=== PATIENT | male | born 1975 | race Caucasian/White ===

== ENCOUNTER → 2021-02-22 08:20 | Outpatient (CLI) | payer OTHER, SELFPAY ==
--- NOTE | 2021-02-22 08:21 | MRI_ITS ---
STUDY: MRI LUMBAR SPINE WITHOUT CONTRAST REASON FOR EXAM: Male, 45 years old. pain TECHNIQUE: Standardized fat and water weighted pulse sequences were obtained in the sagittal and axial planes. COMPARISON: X-ray 07/05/2020 FINDINGS: T12-L1: Normal endplates. Normal disc height, hydration and morphology. Normal bilateral facet joints. Normal central canal and bilateral lateral recesses. Normal bilateral intervertebral neural foramina. Normal lumbar lordosis. There is no substantial scoliosis. Normal conus medullaris that terminates at the L2. L1-2: Mild bilobed disc protrusion produces mild spinal stenosis and mild left neural foraminal stenosis. L2-3: Normal endplates. Normal disc height, hydration and morphology. Normal bilateral facet joints. Normal central canal and bilateral lateral recesses. Normal bilateral intervertebral neural foramina. L3-4: Normal endplates. Normal disc height, hydration and morphology. Normal bilateral facet joints. Normal central canal and bilateral lateral recesses. Normal bilateral intervertebral neural foramina. L4-5: Normal endplates. Normal disc height, hydration and morphology. Normal bilateral facet joints. Normal central canal and bilateral lateral recesses. Normal bilateral intervertebral neural foramina. L5-S1: Loss of disc height with a mild broad disc protrusion produces mild spinal stenosis and mild bilateral neural foraminal stenosis. Normal visualized sacral ala. Normal visualized paraspinous soft tissue structures. MRI/Spine Lumbar (Routine) IMPRESSION: Multilevel degenerative changes, as described above. Electronically Signed: Shyam Henry MD at 14:27 EDT Tel , Service support ,
== END ==
PROVIDERS: PCP Family Medicine; Referring Provider Orthopaedic Surgery; Visit Provider Orthopaedic Surgery
DX: M51.27 Other intervertebral disc displacement, lumbosacral region (principal)
CPT/HCPCS: 72148

== ENCOUNTER 2021-02-25 05:33 | Inpatient (IN) | payer OTHER, SELFPAY ==
[2021-01-17 09:34] VITALS: BMI 27.1
--- NOTE | 2021-02-14 09:32 | EKG12_ITS ---
Test Reason : PRE OP Blood Pressure : / mmHG Vent. Rate : 058 BPM Atrial Rate : 058 BPM P-R Int : 112 ms QRS Dur : 090 ms QT Int : 382 ms P-R-T Axes : 009 048 028 degrees QTc Int : 374 ms Sinus bradycardia Otherwise normal ECG Confirmed by REJI LOCKETT, RIAZ ([id number]), continuity editor JANE GRANDA ([id number]) on 02/17/2021 9:37:58 AM Referred By: ROGELIO Confirmed By:RIAZ MENDOZA MD
[2021-02-14 10:33] LABS: Absolute Lymphocyte Count 2.23 X10^3/uL (0.83-4.51); Absolute Neutrophil Count 4.2 X10^3/uL (2.0-7.7); Basophil# 0.06 X10^3/uL; Basophil% 0.8 % (0-1); Eosinophil# 0.16 X10^3/uL; Eosinophils% 2.2 % (0-5); Hemoglobin 14.3 g/dL (13.0-16.5); Lymphocyte # 2.23 X10^3/ul (0.83-4.51); Lymphocyte % 31.2 % (19-41); Mean Corp Hgb Conc 31.8 g/dL (32-36); Mean Corpuscular Hgb 29.7 pg (27.0-32.0); Mean Corpuscular Volume 93.4 fL (80-94); Mean Platelet Vol. 11.3 fl (6.2-12.0); Monocyte# 0.45 X10^3/uL; Monocyte% 6.3 % (0-10); NRBC Flagged by Analyzer 0 % (0-5); Neutrophil # 4.23 X10^3/uL (2.7-7.7); Neutrophil % 59.2 % (47-70); Platelet Count 248 K/mm3 (150-450); RBC Distribution Width CV 12.6 % (11.6-14.6); RBC Distribution Width SD 43.6 fl (35.1-43.9); Red Blood Count 4.82 M/mm3 (4.6-6.2); White Blood Count 7.2 K/mm3 (4.4-11.0)
[2021-02-14 11:03] LABS: Anion Gap 2 (5-15); BUN 14 mg/dL (7-18); BUN/Creat Ratio 15.6 RATIO (10-20); Calcium,Total 9.1 mg/dL (8.5-10.1); Chloride 106 mmol/L (98-107); EST Glomerular Filtration Rate 96 mL/min (>60); Est Glom Filt Rate - Afr Amer 116 mL/min (>60); Glucose 88 mg/dL (74-106); Potassium 4.1 mmol/L (3.5-5.1); Sodium Level 139 mmol/L (136-145)
[2021-02-14 11:18] LABS: Magnesium 2.1 mg/dL (1.6-2.6)
[2021-02-14 11:39] LABS: HIV - WCH Non-Reactive (Nonreactive); Hepatitis B Surface Antibody Non-Reactive; Hepatitis C Antibody Non-Reactive (Nonreactive)
[2021-02-15 10:23] LABS: Hepatitis A AB, Total Negative (Negative)
--- NOTE | 2021-02-21 13:24 | PCM.HP.BLA ---
History and Physical Date of Admission: 02/25/21 [facility] [id number] [id number] OFFICE VISITDate of Service: 01/17/21 MR#:[id number]:[id number]: ZEYAD MONTEZ [facility] #:[id number]:1975 Provider:Dr. Que Pringle DOAge/Sex: 45/M Location:[place]:Signed Intake Vital Signs 01/17/21 09:34 BMI 27.1 Intake Visit Reasons: Lumbar spine Allergies No Known Allergies Allergy (Verified 01/17/21 09:37) Medications ascorbate calcium (vitamin C) 500 mg tablet 500 mg PO DAILY 07/05/20 [History Confirmed 01/17/21] cyclobenzaprine 10 mg tablet tab PO 07/05/20 [History Confirmed 01/17/21] multivitamin 1 tab PO DAILY 07/05/20 [History Confirmed 01/17/21] gabapentin 300 mg capsule 300 mg PO TID cap 01/17/21 [History Confirmed 01/17/21] PFSH Surgical History H/O hand surgery Family History Father Heart disease Grandfather Heart disease Lung cancer Mother Bladder cancer Arthritis Grandmother Diabetes Social History household members: spouse and children housing: house current occupational status: employed Tobacco: How many years used: 40 Smokeless tobacco user: chewing tobacco what type of physical activity do you participate in: none do you feel safe at home: Yes HPI Lumbar spine Details: Parts of this documentation were recorded by a scribe, this documentation accurately reflects the service provided and the decisions made by me, Dr. Que Pringle DO 01/17/21926. ZEYAD MONTEZ is a 45 year old M here today for f/u low back pain. Patient has numbness and tingling in bilateral legs as well as his sides. Patient states that his pain can be sharp, burning or dull depending on the day. He has this pain radiating down his legs as well into his groin. Pain management has been giving injections for the pain but these have worn off quickly. Had gone through PT in the past. Denies any history of spinal surgery. Zeyad returns in the company of his . I have not seen him since June and he has gotten significantly worse since then. He states that he now drags his left foot often and he trips because of weakness in the foot. His pain is worse than it ever was going down his leg and starting in the middle of his low back. He denies any bowel or bladder dysfunction per se. On examination he has very positive straight leg raising very positive tension signs on the left. He can only forward bend a few inches because of the severe pain that goes down his leg. He has marked weakness of the peroneals on the left as compared to the right. He did not have that last time I examined him 6 months ago. The weakness is profound. His left Achilles reflex is absent as expected his right 1 is 2+. He has no long tract signs. Clonus is absent Babinski's are downgoing. I went over his old MRI scan that was done last year. He has large herniation at L5-S1 to the left. With desiccation and degeneration of the L5-S1 disc. Because of his marked time interval change and a obvious deterioration of his condition neurologically I suspect that he has had more nucleus come out of the disc. We will order a new MRI scan of the lumbar spine. He undoubtedly will need surgical intervention in the form of a 360 degree fusion with left-sided laminectomy at L5-S1. I will see him as soon as the MRI scan is done. Coding Level of Care Code Off vis,est,level 3 Diagnoses Herniated nucleus pulposus, L5-S1, left M51.27 Time Spent (min) 35 Assessment and Plan Assessment and Plan (1) Herniated nucleus pulposus, L5-S1, left:
[2021-02-25] VITALS (11 sets, daily range): BP systolic 118–134; BP diastolic 73–88; PULSE 64–96; RESP 16–20; TEMP 35.6–37.2; O2SAT 98–100; BMI 27.3
[2021-02-25] MEDS: Acetaminophen 500 MG Tablet 1000 MG PO (06:18)
[2021-02-25 06:25] LABS: Bedside Glucose 124 mg/dL (70-110)
[2021-02-25] MEDS: Lactated Ringers 1,000 ML 100 ML IV ×4 (06:33→15:30)
[2021-02-25] MEDS: Cefazolin 2 GM in 0.9% Normal Saline 100 ML IV (07:48)
[2021-02-25] MEDS: THROMBIN (RECOMBINANT) 20,000 UNIT VIAL 20000 UNIT TOPICAL (08:44)
[2021-02-25] MEDS: Heparin 10,000 UNITS/10 ML Vial 10000 UNITS (08:44)
--- NOTE | 2021-02-25 09:15 | RAD_ITS ---
STUDY: X-RAY - LUMBAR SPINE REASON FOR EXAM: Male, 45 years old. Intraoperative image during spine fusion TECHNIQUE: A single lateral view(s) of the lumbar spine were obtained. COMPARISON: Lumbar spine images dated 07/05/2020. FINDINGS: A single lateral image shows a needle at the L5-S1 interspace with multiple surgical skin. RAD/Spine 1 View Any Level IMPRESSION: Intraoperative digital documentation image. Electronically Signed: Mirza Scherer MD at 9:53 EDT , Service support ,
--- NOTE | 2021-02-25 10:15 | RAD_ITS ---
STUDY: X-RAY - LUMBAR SPINE REASON FOR EXAM: Male, 45 years old. 360 FUSION L5-S1, LAMINECTOMY LEFT TECHNIQUE: 1 view(s) of the lumbar spine were obtained. COMPARISON: 02/25/2021 at 0901 FINDINGS: A single lateral view of the lumbar spine demonstrates patient is status post discectomy, interbody fusion, and anterior fixation at L5/S1.. RAD/Spine 1 View Any Level IMPRESSION: Status post discectomy, interbody fusion, and anterior fixation at L5/S1. Electronically Signed: Shyam Henry MD at 16:51 EDT Tel , Service support ,
--- NOTE | 2021-02-25 10:26 | RAD_ITS ---
STUDY: X-RAY - LUMBAR SPINE REASON FOR EXAM: Male, 45 years old. 360 FUSION L5-S1, LAMINECTOMY LEFT TECHNIQUE: 1 view(s) of the lumbar spine were obtained. COMPARISON: None FINDINGS: A single lateral view of the lumbar spine obtained operative versus patient be status post discectomy and interbody fusion and anterior fixation at L5/S1.. RAD/Spine 1 View Any Level IMPRESSION: Status post fusion and fixation at L5/S1. Electronically Signed: Shyam Henry MD at 16:31 EDT Tel , Service support ,
--- NOTE | 2021-02-25 10:28 | PCM.OP.BLANK ---
Problems Associated Problem List Diagnoses (1) Herniated nucleus pulposus, L5-S1, left: Operative Report Date of Procedure: 02/25/21 Surgeon: Dr. Pringle co-surgeon: Dr. Davie Del Cid Diagnosis: Herniated disc with cauda equina syndrome Postop diagnosis same Procedure: Anterior lumbar interbody fusion L5-S1 with cage placement, bone marrow aspirate, and plate with 2 screws in L5 and 2 into S1. EBL: 50 cc Complication: None Operation: Patient brought to the operating room. Underwent general anesthesia. Given all the appropriate monitoring lines. Appropriate a We incised the fascia and divided this medially just to thentibiotics were given. Prepped and draped in a sterile fashion. We did a left lower quadrant incision and dissected do midline and then laterally past the rectus into the obliques.wn onto the anterior fascia. We then freed up the inferior superior long the fascia. We then got into the retroperitoneal space along the iliopsoas and visualization of the vessels. Omni retractor was placed. Then using blunt dissection we dissected onto the L5-S1 disc space. He had a very large middle sacral vein that was divided between ties and clips. Middle sacral vessel was also divided between clips. Several smaller venous branches also divided between clips. We then placed the needle and confirmed with x-ray in the L5-S1 disc space. Patient then underwent a discectomy. Trials were placed this is dilated up. Prior to this bone marrow aspirate from the left iliac crest. Once the space was freed and used a 14 small trial. Then also used the broach in this as well with a 14 mm. We then freed up the anterior and inferior for the plate. Then put in a 14 mm small cage with using the bone marrow aspirate. This was in good position. Plate was placed with 2 screws into L5 being 30 mm and 2 into S1 at 25 mm. Completion x-ray showed good position of this. We put a film over the plate and released the vessels with good hemostasis. We then closed the fascia with running strata fix. Then closed above this in layers with 203 0 Vicryl, and 4-0 Monocryl with Dermabond for the skin. I was present during the entire component of this. Patient will get flipped and the posterior all be done separately.
--- NOTE | 2021-02-25 10:42 | PCM.OPRPT ---
Report of Operation Date of Procedure: 02/25/21 Description of Surgical Findings:: Preoperative diagnosis: Herniated disc L5-S1 with degenerative disc disease L5-S1 intractable low back pain Postoperative diagnosis: Same Procedure: #1 anterior lumbar interbody fusion L5-S1 CPT code 28324 #2 application of spinal plate L5-S1 CPT code 47445/59 #3 insertion of titanium cage L5-S1 CPT code 64706 #4 BMA from left anterior iliac crest Cosurgeons: Dr. Pringle and Dr. Del Cid assistant controller: Veda MORGAN Anesthesia: General endotracheal anesthesia administered by [facility] Estimated blood loss: Less than 100 cc Drains: None Complications: None Procedure: Patient was taken to the OR where he was placed under general endotracheal anesthesia. A Pulido catheter was inserted. Neuro monitoring placed their leads on the patient. This was with the patient in the supine position on the operating table. The abdomen was then prepped and draped in standard fashion. The surgical approach is then described in Dr. Del Cid's operative summary. Once the L5-S1 disc was exposed an intraoperative x-ray was taken with a needle in place to confirm that we were indeed at L5-S1 which we were. Then remove the anterior annulus with a 10 blade and then pituitary rongeurs. I then removed the nucleus from then the disc space with pituitary rongeurs as far back as I could. Note that he had a decreased disc base because of the degeneration. I used ring curettes and to remove the cartilage off the top of the S1 endplate and the bottom of the L5 endplate. I then elevated the anterior longitudinal ligament off the spurring anteriorly at the bottom of L5 and the top of S1. Using double-action rongeurs I removed the anterior spurring at both levels. I then used a 6 mm stella bur to open the lateral space to make it flat for the cage. Also used it to give me more room posteriorly at the end of the disc space posteriorly. We then tried a large 10 mm 8 degree trial first however it was just a bit too big and we decided on the smaller 25 x 35 8 degree trial. We started with a 10 moved on up to 12 and finally ended up using a 14 mm trial. This fit quite well. Using the broach we were able to broach the space repeatedly until we had good bleeding endplate on both sides. We then took our a 14 mm 8 degree 25 x 35 cage and I filled the 2 spaces with spongy demineralized bone matrix. We obtained the BMA from the left iliac crest through a Jamshidi needle. This was then handed off to the electrical technician instructor who spun down and the stem cells from the rest of the cells. She concentrated them 8-10 times and gave them back to us. I then soaked the [place] demineralized bone matrix in the cage in the patient's own stem cells. I then tamped it into place and countersunk it a couple of millimeters. We then used a 27 mm L5-S1 plate once it was centered the first of 4 holes were used with an awl note that Dr. Del Cid was instrumental throughout the surgery help me with the all the insertion of the screws and the locking mechanisms etc. Once the [address] 2 into L5 and 2 into S1 he activated the locking mechanisms. Then place an amnionic graft directly over the plate particularly cheated a little bit to the left side where the iliac vessel went over the plate. This will prevent adhesions to the plate in the future. This was seen on the lateral projection with an x-ray was found to be very satisfactory. We had good position of the plate the screws and the cage. Note that the cage and the plate are not integral to each other. Hence modifier #59. The closure was then described in Dr. Del Cid's operative summary. This is the end of operative summary on Zeyad Carrillo. This is Dr. Pringle dictating.
--- NOTE | 2021-02-25 11:58 | RAD_ITS ---
STUDY: X-RAY - LUMBAR SPINE REASON FOR EXAM: Male, 45 years old. 360 FUSION L5-S1, LAMINECTOMY TECHNIQUE: 1 view(s) of the lumbar spine were obtained. COMPARISON: 02/25/2021 at 1139 FINDINGS: A single lateral view of the lumbar spine demonstrates patient is status post recent discectomy, interbody fusion, and anterior and posterior fixation at L5/S1 with skin jason and subcutaneous emphysema.. RAD/Spine 1 View Any Level IMPRESSION: Status post recent discectomy, interbody fusion, anterior and posterior fixation at L5/S1. Electronically Signed: Shyam Henry MD at 17:06 EDT Tel , Service support ,
--- NOTE | 2021-02-25 13:30 | OP.PCM_ITS ---
Report of Operation Date of Procedure: 02/25/21 Description of Surgical Findings:: Preoperative diagnosis: Herniated disc L5-S1 with severe degeneration intractable low back pain L5-S1 Postoperative diagnosis: The same Procedure: #1 posterior fusion L5-S1 CPT code 54086 #2 laminectomy L5-S1 left CPT code 81501 #3 internal fixation L5-S1 CPT code 03192 Surgeon: Dr. Pringle social science research assistant: Veda MORGAN Anesthesia: General endotracheal anesthesia administered by [facility] Estimated blood loss: 100 cc for both the front surgery and the back surgery Drains: Medium Hemovac Complications: None Procedure: Once the anterior procedure was completely done and the abdomen closed the patient was then placed in prone position on the Andrew frame. After appropriate positioning with care to protect bony prominences, the ulnar nerves of both elbows, the brachial plexus, the genitalia, the cervical spine and facial features the back was prepped and draped in standard fashion. I made a longitudinal incision centered over L5-S1 subcutaneous tissues were incised the length of the skin incision with cautery. I then opened the lumbar fascia to the left of the spinous processes and elevated the paravertebral muscles off the lamina 5 and the lamina of S1 on the left. An intraoperative x-ray was taken with a marker in place to assure that we were indeed at the proper level which we were. This was marked I then put a Charmaine retractor in place to the left give me good access to the lamina of L5. I then thinned down the lamina with double-action rongeurs. I then elevated the ligamentum flavum off the underside of the lamina of L5 and performed a laminotomy with Kerrison rongeurs. I then split the ligamentum flavum near its midline by putting a hockey-stick underneath it and cutting on top of it I then used curettes to release it off of the top of S1. I then removed the ligamentum flavum with 45 degree Kerrison rongeurs and went out all the way lateral to remove all of it into the lateral recess. Noted with opening the lateral part that the disc though bulging just a little since most of it was taken out through ligamentotaxis from the front there was no need to actually cut into the disc. Thus it was left alone. Opening the lateral recess completely decompressed the left S1 nerve root. We checked the foramen both anterior to the S1 nerve root and posterior to the S1 nerve root and there was simply no pressure on the nerve root anywhere. We then prepared for the fusion we then opened the right side and elevated paravertebral muscles off the lamina of L5 and the lamina of S1. Double-action rongeurs were used to remove the interspinous ligament between L5 and S1. A bone spacer was then put in place for both stability and to promote the fusion noted before this we put strips of DBM soaked in patient's own stem cells on both sides. The kidney graft was then put over this. We then applied the internal fixation device to provide posterior stability. Once in place the locking mechanisms were activated which gives a good construct. We then were able to observe this on x-ray was found to be quite satisfactory. A medium Hemovac drain was inserted. The lumbar fascia was then reapproximated using [id number] suture with #1 Vicryl followed by closure of the subcutaneous tissues with both 0 Vicryl and 2-0 Vicryl in layers. The skin was then approximated using skin c lips. This is operative summary on Zeyad Carrillo. This is Dr. Pringle dictating.
[2021-02-25] MEDS: Cefazolin 1 GM/50 ML BAG IV ×2 (17:00→23:21)
[2021-02-25] MEDS: Gabapentin 300 MG Capsule PO ×2 (17:00→22:36)
[2021-02-25] MEDS: Morphine 4 MG/ML Syringe IV ×2 (17:00→20:45)
--- NOTE | 2021-02-25 17:23 | PCS.PANDOC ---
PANDEMIC DOCUMENTATION INITIATED: Date: 02/03/2021 Time: 190
[2021-02-25] MEDS: oxyCODONE 5 MG Tablet PO (18:59)
[2021-02-25] MEDS: Ondansetron 4 MG/2 ML Vial IV (18:59)
[2021-02-25] MEDS: 0.9% Saline Lock 10 ML Syringe IV (19:00)
[2021-02-25] MEDS: Famotidine 20 MG Tablet PO (22:36)
[2021-02-25] MEDS: Senna/Docusate Sodium 1 Tablet 2 TABLET PO (22:36)
[2021-02-26] VITALS (11 sets, daily range): BP systolic 111–138; BP diastolic 65–83; PULSE 91–123; RESP 16–28; TEMP 36.6–38.8; O2SAT 94–100
--- NOTE | 2021-02-26 | DISC_PTH ---
PATIENT: CHRISTIANA MONTEZ LOC: MS3 U#:[id number] AGE/SX: 45/M ROOM: [facility] RE02/25/[address]: Dr. Que Pringle DO : 1975 BED: 1 DIS: 02/28/2021 SPEC #: [id number] RECD: 02/26/21 09:38 STATUS: EDWARD REQ #: [id number] BRENDA: 02/26/21 00:[address]: Que Pringle DEPT: SURGICAL PATHOLOGY RECD BY: Gavin Ramirez ENTERED: 02/26/21 09:39 SP TYPE: DISC OTHR DR: Dr. Elmo Trimble MD Tissues: Intervertebral disc, NOS Procedures: Surgery Specimen Level III HEADER OPERATION: ERAS, 360 lumbar Fusion L5-S1, laminectomy PRE-OP DIAGNOSIS: Herniated nucleus pulposus, L5-S1, left TISSUE SUBMITTED: L5-S1 Disc MICROSCOPIC DIAGNOSIS Intervertebral disc, L5-S1, discectomy: Degenerative change. AM:am 02/27/21 MICROSCOPIC DESCRIPTION Slides are reviewed. GROSS DESCRIPTION Received is one container labeled with the patient name and designated L5-S1 Disc. The specimen consists of multiple irregular fragments of light garcia firm soft tissue that in aggregate measure 6 x 5 x 2cm. Tailing Hand portions are submitted in one cassette. / AM:am 02/26/21 TC:5 CPT: 65142
[2021-02-26] MEDS: oxyCODONE 5 MG Tablet PO ×3 (00:35→13:38)
[2021-02-26] MEDS: Lactated Ringers 1,000 ML 100 ML IV ×4 (00:37→21:30)
[2021-02-26] MEDS: 0.9% Saline Lock 10 ML Syringe IV ×3 (05:36→11:07)
[2021-02-26] MEDS: Gabapentin 300 MG Capsule PO ×3 (05:36→21:30)
[2021-02-26] MEDS: Senna/Docusate Sodium 1 Tablet 2 TABLET PO ×2 (07:31→21:30)
[2021-02-26] MEDS: Famotidine 20 MG Tablet PO ×2 (07:31→21:30)
[2021-02-26] MEDS: Ondansetron 4 MG/2 ML Vial IV (07:32)
--- NOTE | 2021-02-26 11:00 | CASEMGMT ---
RN CM Face to Face with patient for initial transition planning/care coordination assessment. RN CM introduced self and role at [facility]. Patient lying in bed, alert and oriented, at bedside. Patient willing to participate in assessment and is able to answer all questions appropriately. Care providers, pharmacy, and demographics verified. Patient wishes to discharge home, denies need for home health at this time. Patient states he has no further needs or concerns at this time. CM to follow for discharge planning needs that may arise. PCP: Atilio Specialists: [facility] spinal surgeon Preferred [facility]acy: [facility] Insurance: [employer] Prescription Benefit: yes Living Will/HPOA: none LNOK: Living Arrangements: patient lives with in a mobile home with 5 steps and railing to enter the home. Patient was independent at home prior to surgery. Transportation: self/ DME/HHC: Patient may have BSC, cane, and walker at home, to check. Will follow and assist if patient will need walker. Patient denies previous HHC. Disposition Plan: Patient to discharge home with family support and follow-up plans in place. Rachell WHITEN, RN, CM
[2021-02-26] MEDS: Morphine 4 MG/ML Syringe IV ×2 (11:06→16:18)
--- NOTE | 2021-02-26 13:00 | PCM.PN.ORT ---
Objective Data Objective Data Vital Signs: Vital Signs Temp Pulse Resp BP Pulse Ox 97.9 F 105 H 16 118/73 100 02/26/21 07:28 02/26/21 07:28 02/26/21 07:28 02/26/21 07:28 02/26/21 07:28 Oxygen Flow Rate (L/min) 6 Oxygen Delivery Method Room Air Weight: 196 lb 6 oz Body Mass Index (BMI) 27.3 Intake & Output: Intake and Output for Last 24 Hours 02/24/21 02/25/21 02/26/21 23:59 23:59 23:59 Intake Total 4050.5 / 4050.5 948.34 / 948.34 Output Total 1170 / 1170 980 / 980 Balance 2880.5 / 2880.5 -31.66 / -31.66 Lab / Micro Data Result Diagrams: 02/14/21 09:50 02/14/21 09:50 Micro: Microbiology 02/21/21 08:35 Interface Orders SARS-CoV-2 Antigen (Rapid) - Final 02/14/21 09:50 Swab (Method) Nasal Screen MRSA/MSSA - Final Radiography Diagnostic Testing: Radiology Impression Spine X-Ray 02/25/21 10:15 IMPRESSION: Status post discectomy, interbody fusion, and anterior fixation at L5/S1. Electronically Signed: Shyam Henry MD at 16:51 EDT Tel , Service support , Spine X-Ray 02/25/21 10:26 IMPRESSION: Status post fusion and fixation at L5/S1. Electronically Signed: Shyam Henry MD at 16:31 EDT Tel , Service support , Spine X-Ray 02/25/21 11:58 IMPRESSION: Status post recent discectomy, interbody fusion, anterior and posterior fixation at L5/S1. Electronically Signed: Shyam Henry MD at 17:06 EDT Tel , Service support , Procedure Criteria Elective Risks - COVID COVID Risk Discussion: Postop day #1. Patient only complains that he is hungry. However we listen for bowel sounds and they are hypo at this time. Thus he cannot eat yet. We will keep him on clear liquids. His back pains not too bad has been up a couple of times already today. Neurocirculation is intact both lower extremities. Progress is satisfactory.
[2021-02-26] MEDS: diazePAM 5 MG Tablet PO (16:17)
--- NOTE | 2021-02-26 17:43 | PN_ITS ---
Documented by User: ANNY Murray 02/26/21 17:59 Progress Note Consulted by Dr. Pringle for new onset tachypnea, tachycardia, sudden onset fever. Patient underwent 360 lumbar fusion of the L5-S1 on 02/25/2021. Patient had been stable overnight but had sudden right hip and flank pain with concurrent fever 101.8, tachypnea 28, and tachycardia 123. Patient was given a dose of morphine 4 mg IV which had been effective in the past for pain control the patient states he feels like this dose has not been effective at all. Per Guera RICE, patient is not functioning properly which Dr. Gutierres is aware. Assessment & Plan Assessment/Plan (1) Fever: QUALIFIERS: Fever type: post-procedural Qualified Code(s): R50.82 - Postprocedural fever PLAN: 1. Sudden onset fever -Will obtain Covid PCR, chest x-ray, UA, blood cultures x2, urine culture -As patient has had no CBC or CMP completed since 02/14/2021 we will order CBC and CMP -Preop labs reviewed, no pertinent abnormal lab values noted -Tylenol 1000 mg p.o. every 8 hour as needed ordered for pain and fever 2. Sudden onset right hip and flank pain -Will obtain bilateral hip and pelvis x-ray along with lumbar spine x-ray -Dilaudid 0.5 mg x 1 ordered as morphine was completely on effective 3. 360 lumbar fusion -Will defer further surgical evaluation/intervention to Dr. Pringle -Dr. Gutierres updated by Marisa RICE of hospitalist plan of care and concerns regarding surgical drain in place. DVT prophylaxis-SCDs This patient was seen by ANNY Murray under the supervision of Dr. Rubina garay
[2021-02-26] MEDS: HYDROmorphone 0.5 MG/0.5 ML SYRINGE IV (17:59)
[2021-02-26] MEDS: 0.9% Normal Saline 1,000 ML 500 ML IV (18:04)
--- NOTE | 2021-02-26 18:16 | NURSING ---
pt unble to void prior to x-ray calling and emergently wanting pt in their unit for x-rays
--- NOTE | 2021-02-26 18:18 | RAD_ITS ---
STUDY: X-RAY CHEST REASON FOR EXAM: Male, 45 years old. Tachypnea TECHNIQUE: Portable, AP and lateral chest radiograph COMPARISON: None. FINDINGS: The lungs are clear and expanded. There is no demonstrated pleural abnormality. Normal size heart. Normal mediastinum and jordan. Normal visualized pulmonary arteries. Normal visualized aortic arch and descending thoracic aorta. There are diffuse degenerative changes of the visualized thoracic spine. Normal visualized ribs, clavicles, and shoulders. There is no demonstrated abnormality of the visualized soft tissue structures of the upper abdomen. RAD/Chest PA and Lateral IMPRESSION: No acute abnormal cardiopulmonary finding. Electronically Signed: Miguelito Valencia MD at 22:45 EDT Tel , Service support ,
--- NOTE | 2021-02-26 18:26 | RAD_ITS ---
STUDY: X-RAY - PELVIS AND BILATERAL HIPS REASON FOR EXAM: Male, 45 years old. Pain TECHNIQUE: AP view of the pelvis.? 2 views of the right hip, and 2 views of the left hip were obtained. COMPARISON: None. FINDINGS: There is a non-specific bowel gas pattern. Normal visualized soft tissue structures. Left pelvic phlebolith. Incidentally noted lower lumbar spine stabilization hardware. Normal bilateral iliac wings, sacroiliac joints and visualized sacrum. Normal bilateral superior and inferior pubic rami. Normal pubic symphysis. Normal bilateral ischial tuberosities. Normal visualized right femoral head. Normal right acetabulum. Normal right hip joint. Normal visualized left femoral head. Normal left acetabulum. Normal left hip joint. RAD/Hips B/L min 2 views w/ Pelvis IMPRESSION: Normal x-ray examination of the pelvis and bilateral hips. Electronically Signed: Miguelito Valencia MD at 4:34 EDT Tel , Service support ,
--- NOTE | 2021-02-26 18:27 | RAD_ITS ---
STUDY: X-RAY - LUMBAR SPINE REASON FOR EXAM: Male, 45 years old. Pain TECHNIQUE: AP and lateral radiographic view(s) of the lumbar spine were obtained. COMPARISON: 03/07/2021 FINDINGS: L4 right posterior element prosthetic device is new compared to 02/25/2021. L5-S1 anterior and posterior instrumented fusion redemonstrated. Normal lumbar lordosis. There is no substantial scoliosis. There is a normal alignment of the vertebrae. There is multilevel endplate spondylosis of the lumbar vertebrae. There is multi-level degenerative disc disease with multi-level disc space narrowing. There is no demonstrated fracture. There is no demonstrated spondylolysis of the pars interarticulares. The soft tissue structures are unremarkable. RAD/Lumbar Spine 2 or 3 Views IMPRESSION: There is a new prosthetic device about the L4 right posterior elements. Electronically Signed: Miguelito Valencia MD at 22:51 EDT Tel , Service support ,
[2021-02-26] MEDS: Acetaminophen 325 MG Tablet 650 MG PO (19:21)
[2021-02-26 19:45] LABS: Bacteria 0 SEEN /hpf (None Seen); Mucous, Urine 0 SEEN /hpf (<or=2+); Squamous Epithelial Cells - UA 0 SEEN /hpf (0-5)
[2021-02-26 19:58] LABS: Absolute Lymphocyte Count 1.61 X10^3/uL (0.83-4.51); Absolute Neutrophil Count 11.9 X10^3/uL (2.0-7.7); Basophil# 0.03 X10^3/uL; Basophil% 0.2 % (0-1); Hematocrit 40.3 % (40-54); Lymphocyte # 1.61 X10^3/ul (0.83-4.51); Lymphocyte % 10.7 % (19-41); Mean Corp Hgb Conc 32.3 g/dL (32-36); Mean Corpuscular Hgb 30.2 pg (27.0-32.0); Mean Corpuscular Volume 93.5 fL (80-94); Mean Platelet Vol. 11.3 fl (6.2-12.0); Monocyte# 1.36 X10^3/uL; Monocyte% 9.1 % (0-10); NRBC Flagged by Analyzer 0 % (0-5); Neutrophil # 11.94 X10^3/uL (2.7-7.7); Neutrophil % 79.7 % (47-70); Platelet Count 258 K/mm3 (150-450); RBC Distribution Width CV 13.2 % (11.6-14.6); RBC Distribution Width SD 45.1 fl (35.1-43.9); Red Blood Count 4.31 M/mm3 (4.6-6.2)
[2021-02-26 20:00] LABS: Color, Urine Straw (Yellow); Glucose, Dipstick Normal (Normal); Ketone-Dipstick Negative (Negative); Leukocyte Esterase-Dipstick 25 /ul (Negative); Nitrite-Dipstick Negative (Negative); Occult Blood-Urine 250 /ul (Negative); Protein-Dipstick Negative (Negative); Urine Bilirubin Dipstick Negative (Negative); Urine Clarity Clear (Clear); Urine Urobilinogen Normal (Normal)
[2021-02-26 20:10] LABS: ALB/GLOB Ratio 1.1 RATIO (0.9-2.4); AST(SGOT) 18 U/L (15-37); Alanine Aminotransfer ALT/SGPT 40 U/L (16-61); Albumin, Serum 3.3 g/dL (3.2-5.0); Alkaline Phosphatase 87 U/L (45-117); Anion Gap 3 (5-15); BUN 13 mg/dL (7-18); BUN/Creat Ratio 13.9 RATIO (10-20); Calcium,Total 8.7 mg/dL (8.5-10.1); Chloride 107 mmol/L (98-107); Creatinine, Serum 0.94 mg/dL (0.70-1.30); EST Glomerular Filtration Rate 92 mL/min (>60); Est Glom Filt Rate - Afr Amer 111 mL/min (>60); Estimated Creatinine Clearance 103.47 ml/min; Globulin 3.1 g/dL (2.2-4.2); Glucose 111 mg/dL (74-106); Potassium 3.7 mmol/L (3.5-5.1); Protein, Total 6.4 g/dL (6.4-8.2); Sodium Level 140 mmol/L (136-145)
[2021-02-26 20:20] LABS: Red Blood Cells-Urine 5-10 SEEN /hpf (0-5); White Blood Cells 0-5 SEEN /hpf (0-5)
[2021-02-26 21:04] LABS: Probe Check PASS; Specimen Processing Control PASS
[2021-02-27] VITALS (8 sets, daily range): BP systolic 117–131; BP diastolic 77–89; PULSE 87–115; RESP 18; TEMP 36.7–37.4; O2SAT 95–99
[2021-02-27] MEDS: oxyCODONE 5 MG Tablet 10 MG PO ×5 (02:15→20:08)
[2021-02-27 05:56] LABS: Absolute Lymphocyte Count 1.33 X10^3/uL (0.83-4.51); Absolute Neutrophil Count 10.2 X10^3/uL (2.0-7.7); Basophil# 0.03 X10^3/uL; Basophil% 0.2 % (0-1); Hematocrit 39.7 % (40-54); Hemoglobin 12.6 g/dL (13.0-16.5); Lymphocyte # 1.33 X10^3/ul (0.83-4.51); Lymphocyte % 10.2 % (19-41); Mean Corp Hgb Conc 31.7 g/dL (32-36); Mean Corpuscular Hgb 29.9 pg (27.0-32.0); Mean Corpuscular Volume 94.3 fL (80-94); Mean Platelet Vol. 10.8 fl (6.2-12.0); Monocyte# 1.46 X10^3/uL; Monocyte% 11.2 % (0-10); NRBC Flagged by Analyzer 0 % (0-5); Neutrophil % 77.9 % (47-70); Platelet Count 219 K/mm3 (150-450); RBC Distribution Width CV 13.2 % (11.6-14.6); RBC Distribution Width SD 45.8 fl (35.1-43.9); Red Blood Count 4.21 M/mm3 (4.6-6.2); White Blood Count 13.1 K/mm3 (4.4-11.0)
[2021-02-27] MEDS: Lactated Ringers 1,000 ML 100 ML IV (06:18)
[2021-02-27] MEDS: Gabapentin 300 MG Capsule PO ×3 (06:18→21:21)
[2021-02-27 06:25] LABS: ALB/GLOB Ratio 0.8 RATIO (0.9-2.4); AST(SGOT) 19 U/L (15-37); Alanine Aminotransfer ALT/SGPT 37 U/L (16-61); Albumin, Serum 2.8 g/dL (3.2-5.0); Alkaline Phosphatase 86 U/L (45-117); Anion Gap 5 (5-15); BUN 10 mg/dL (7-18); BUN/Creat Ratio 13.4 RATIO (10-20); Calcium,Total 8.4 mg/dL (8.5-10.1); Chloride 106 mmol/L (98-107); Creatinine, Serum 0.75 mg/dL (0.70-1.30); EST Glomerular Filtration Rate 119 mL/min (>60); Est Glom Filt Rate - Afr Amer 144 mL/min (>60); Estimated Creatinine Clearance 129.68 ml/min; Globulin 3.3 g/dL (2.2-4.2); Glucose 110 mg/dL (74-106); Potassium 3.8 mmol/L (3.5-5.1); Protein, Total 6.1 g/dL (6.4-8.2); Sodium Level 139 mmol/L (136-145)
--- NOTE | 2021-02-27 07:55 | PCM.RX.CS ---
Consult Pharmacy has been consulted to manage selected antiobiotic: Vancomycin Type of Consult: New start Suspected Infection: Other - SUDDEN ONSET FEVERS AND HIP PAIN Labs: Sodium 139 mmol/L (136-145) 02/27/21 05:42 Potassium 3.8 mmol/L (3.5-5.1) 02/27/21 05:42 Chloride 106 mmol/L (98-107) 02/27/21 05:42 Carbon Dioxide 28.0 mmol/L (21.0-32.0) 02/27/21 05:42 Anion Gap 5 (5-15) 02/27/21 05:42 BUN 10 mg/dL (7-18) 02/27/21 05:42 Creatinine 0.75 mg/dL (0.70-1.30) 02/27/21 05:42 Est GFR (MDRD) Af Amer 144 mL/min (>60) 02/27/21 05:42 Est GFR (MDRD) Non-Af 119 mL/min (>60) 02/27/21 05:42 BUN/Creatinine Ratio 13.4 RATIO (10-20) 02/27/21 05:42 Glucose 110 mg/dL (74-106) H 02/27/21 05:42 Microbiology: Microbiology 02/21/21 08:35 Interface Orders SARS-CoV-2 Antigen (Rapid) - Final 02/14/21 09:50 Swab (Method) Nasal Screen MRSA/MSSA - Final Weight used for dosin.07 kg Estimated Creatinine Clearance: 120 ML/MIN Goal Trough: 15-20 mcg/mL Pharmacy Plan for Drug Dosing: NEW START IV VANCOMYCIN Consulting Physician: ZANDRA Indication: SUDDEN ONSET FEVERS AND HIP PAIN Goal Trough: 15-20 SrCr: 0.75 CrCl: > 120 ML/MIN Comments: INITIAL DOSE (15 MG/KG) 1250MG X1 Vancomcyin Dose: 1000MG Q8H TO START AT 1600 02/27/21 Pending Level: 0700 02/28/21 Pharmacy Service will continue to monitor and adjust dosing as required. Labs to be done on [date and time ordered]: 02/28/21 0700 VANCOMYCIN LEVEL
[2021-02-27] MEDS: diazePAM 5 MG Tablet PO ×3 (08:05→21:25)
[2021-02-27] MEDS: Famotidine 20 MG Tablet PO ×2 (09:28→21:21)
[2021-02-27] MEDS: Senna/Docusate Sodium 1 Tablet 2 TABLET PO ×2 (09:29→21:21)
--- NOTE | 2021-02-27 09:58 | PCM.CONS.GEN ---
Assessment & Plan Assessment/Plan (1) Fever: QUALIFIERS: Fever type: post-procedural Qualified Code(s): R50.82 - Postprocedural fever PLAN: Post op fever, leukocytosis, tachycardia - improved this AM, no further fever, wbc better. UA relatively normal. Bcx pending. Covid pcr neg, but is unvaccinated; reviewed risks and benefits, encouraged him to get vaccine. CXR clear. Incision doing well at this point. Ok to continue vanc/zosyn while cxs pending. Will follow, thank you, d/w nursing (2) Cauda equina syndrome with neurogenic bladder: HPI Consult Data Date of Consult: 02/27/21 HPI Narrative HPI Narrative: CHRISTIANA MONTEZ, is a 45 M who presented 02/25/21 for L5-S1 herniated disc requiring posterior fusion/laminectomy/internal fixation by Dr. Pringle. On 02/26, developed fever to 101.8. No other associated symptoms other than back pain. Pulido in place. CXR done, covid pcr neg. Started on vanc/zosyn, feeling ok this AM. Has not gotten covid vaccine. Spoke with nursing, no redness or drainage from lumbar incision. Full ROS performed and neg except as noted above. REPLACED BY [facility] Medical History Arthritis Back pain Chewing tobacco use History of pain when walking History of steroid therapy History of stress test Leg cramps Restless legs Wears glasses Home Medications ascorbate calcium (vitamin C) 500 mg tablet 500 mg PO DAILY 07/05/20 [History Last Taken Unknown] multivitamin 1 tab PO DAILY 07/05/20 [History Last Taken Unknown] gabapentin 300 mg capsule 300 mg PO TID cap 01/17/21 [History Last Taken 02/25/21] Allergy/AdvReac Type Severity Reaction Status Date / Time No Known Allergies Allergy Verified 02/14/21 08:05 Family History Father Heart disease Grandfather Heart disease Lung cancer Mother Bladder cancer Arthritis Grandmother Diabetes Surgical History H/O hand surgery Social History (Updated 02/14/21 @ 08:08 by Amanda Valencia) household members: spouse and children housing: house current occupational status: employed Smoking Status: Current some day smoker Tobacco: How many years used: 40 Smokeless tobacco user: chewing tobacco what type of physical activity do you participate in: none do you feel safe at home: Yes Physical Exam Const alert, oriented x3 and no apparent distress General Appearance: cooperative Exam Limitations: no limitations HEENT normocephalic and head/scalp atraumatic Eyes PERRL and EOMs intact bilaterally Neck supple and No nodes Resp normal air movement and clear to auscultation bilaterally Cardio regular rate and regular rhythm GI normal to inspection, nondistended, normoactive bowel sounds Extremity no clubbing, cyanosis or edema Skin no rashes or lesions noted Skin Narrative: No swelling or redness around lumbar incision Neuro CN's II-XII intact bilaterally Lab / Micro Data Result Diagrams: 02/27/21 05:42 02/27/21 05:42 Labs: Laboratory Results - last 24 hr 02/26/21 18:00: COVID-19 (JENNIFER) Negative 02/26/21 19:09: WBC 15.0 H, RBC 4.31 L, Hgb 13.0, Hct 40.3, MCV 93.5, MCH 30.2, MCHC 32.3, RDW Std Deviation 45.1 H, RDW Coeff of Kayla 13.2, Plt Count 258, MPV 11.3, Immature Gran % (Auto) 0.300, Neut % (Auto) 79.7 H, Lymph % (Auto) 10.7 L, [place] % (Auto) 9.1, Eos % (Auto) 0.0, Baso % (Auto) 0.2, Absolute Neuts (auto) 11.9 H, Absolute Lymphs (auto) 1.61, Nucleated RBC % 0 02/26/21 19:09: Sodium 140, Potassium 3.7, Chloride 107, Carbon Dioxide 30.0, Anion Gap 3 L, BUN 13, Creatinine 0.94, Estim Creat Clear Calc 103.47, Est GFR (MDRD) Af Amer 111, Est GFR (MDRD) Non-Af 92, BUN/Creatinine Ratio 13.9, Glucose 111 H, Calcium 8.7, Total Bilirubin 0.60, AST 18, ALT 40, Alkaline Phosphatase 87, Total Protein 6.4, Albumin 3.3, Globulin 3.1, Albumin/Globulin Ratio 1.1 02/26/21 19:30: Urine Color Straw, Urine Clarity Clear, Urine pH 7.0, Ur Specific [place] 1.010, Urine Protein Negative, Urine Glucose (UA) Normal, Urine Ketones Negative, Urine Occult Blood 250 H, Urine Nitrite Negative, Urine Bilirubin Negative, Urine Urobilinogen Normal, Ur Leukocyte Esterase 25 H, Urine RBC 5-10 SEEN, Urine WBC 0-5 SEEN, Ur Squamous Epith Cells 0 SEEN, Urine Bacteria 0 SEEN, Urine Mucus 0 SEEN 02/27/21 05:42: WBC 13.1 H, RBC 4.21 L, Hgb 12.6 L, Hct 39.7 L, MCV 94.3 H, MCH 29.9, MCHC 31.7 L, RDW Std Deviation 45.8 H, RDW Coeff of Kayla 13.2, Plt Count 219, MPV 10.8, Immature Gran % (Auto) 0.500, Neut % (Auto) 77.9 H, Lymph % (Auto) 10.2 L, [place] % (Auto) 11.2 H, Eos % (Auto) 0.0, Baso % (Auto) 0.2, Absolute Neuts (auto) 10.2 H, Absolute Lymphs (auto) 1.33, Nucleated RBC % 0 02/27/21 05:42: Sodium 139, Potassium 3.8, Chloride 106, Carbon Dioxide 28.0, Anion Gap 5, BUN 10, Creatinine 0.75, Estim Creat Clear Calc 129.68, Est GFR (MDRD) Af Amer 144, Est GFR (MDRD) Non-Af 119, BUN/Creatinine Ratio 13.4, Glucose 110 H, Calcium 8.4 L, Total Bilirubin 0.70, AST 19, ALT 37, Alkaline Phosphatase 86, Total Protein 6.1 L, Albumin 2.8 L, Globulin 3.3, Albumin/Globulin Ratio 0.8 L Radiology Impression Chest X-Ray 02/26/21 18:18 IMPRESSION: No acute abnormal cardiopulmonary finding. Electronically Signed: Miguelito Valencia MD at 22:45 EDT Tel , Service support , Hip/Pelvis X-Ray 02/26/21 18:26 IMPRESSION: Normal x-ray examination of the pelvis and bilateral hips. Electronically Signed: Miguelito Valencia MD at 4:34 EDT Tel , Service support , Lumbar Spine X-Ray 02/26/21 18:27 IMPRESSION: There is a new prosthetic device about the L4 right posterior elements. Electronically Signed: Miguelito Valencia MD at 22:51 EDT Tel , Service support ,
--- NOTE | 2021-02-27 14:22 | PCM.PN.ORT ---
Objective Data Objective Data Vital Signs: Vital Signs Temp Pulse Resp BP Pulse Ox 98.1 F 102 H 18 117/89 H 96 02/27/21 07:30 02/27/21 07:30 02/27/21 07:30 02/27/21 07:30 02/27/21 08:26 Oxygen Flow Rate (L/min) 6 Oxygen Delivery Method Room Air Weight: 196 lb 6 oz Body Mass Index (BMI) 27.3 Intake & Output: Intake and Output for Last 24 Hours 02/25/21 02/26/21 02/27/21 23:59 23:59 23:59 Intake Total 4050.5 / 4050.5 3644.34 / 3644.34 2054 / 2054 Output Total 1170 / 1170 3130 / 3130 3200 / 3200 Balance 2880.5 / 2880.5 514.34 / 514.34 -1145 / -1145 Lab / Micro Data Result Diagrams: 02/27/21 05:42 02/27/21 05:42 Labs: Laboratory Results - last 24 hr 02/26/21 18:00: COVID-19 (JENNIFER) Negative 02/26/21 19:09: WBC 15.0 H, RBC 4.31 L, Hgb 13.0, Hct 40.3, MCV 93.5, MCH 30.2, MCHC 32.3, RDW Std Deviation 45.1 H, RDW Coeff of Kayla 13.2, Plt Count 258, MPV 11.3, Immature Gran % (Auto) 0.300, Neut % (Auto) 79.7 H, Lymph % (Auto) 10.7 L, [place] % (Auto) 9.1, Eos % (Auto) 0.0, Baso % (Auto) 0.2, Absolute Neuts (auto) 11.9 H, Absolute Lymphs (auto) 1.61, Nucleated RBC % 0 02/26/21 19:09: Sodium 140, Potassium 3.7, Chloride 107, Carbon Dioxide 30.0, Anion Gap 3 L, BUN 13, Creatinine 0.94, Estim Creat Clear Calc 103.47, Est GFR (MDRD) Af Amer 111, Est GFR (MDRD) Non-Af 92, BUN/Creatinine Ratio 13.9, Glucose 111 H, Calcium 8.7, Total Bilirubin 0.60, AST 18, ALT 40, Alkaline Phosphatase 87, Total Protein 6.4, Albumin 3.3, Globulin 3.1, Albumin/Globulin Ratio 1.1 02/26/21 19:30: Urine Color Straw, Urine Clarity Clear, Urine pH 7.0, Ur Specific [place] 1.010, Urine Protein Negative, Urine Glucose (UA) Normal, Urine Ketones Negative, Urine Occult Blood 250 H, Urine Nitrite Negative, Urine Bilirubin Negative, Urine Urobilinogen Normal, Ur Leukocyte Esterase 25 H, Urine RBC 5-10 SEEN, Urine WBC 0-5 SEEN, Ur Squamous Epith Cells 0 SEEN, Urine Bacteria 0 SEEN, Urine Mucus 0 SEEN 02/27/21 05:42: WBC 13.1 H, RBC 4.21 L, Hgb 12.6 L, Hct 39.7 L, MCV 94.3 H, MCH 29.9, MCHC 31.7 L, RDW Std Deviation 45.8 H, RDW Coeff of Kayla 13.2, Plt Count 219, MPV 10.8, Immature Gran % (Auto) 0.500, Neut % (Auto) 77.9 H, Lymph % (Auto) 10.2 L, [place] % (Auto) 11.2 H, Eos % (Auto) 0.0, Baso % (Auto) 0.2, Absolute Neuts (auto) 10.2 H, Absolute Lymphs (auto) 1.33, Nucleated RBC % 0 02/27/21 05:42: Sodium 139, Potassium 3.8, Chloride 106, Carbon Dioxide 28.0, Anion Gap 5, BUN 10, Creatinine 0.75, Estim Creat Clear Calc 129.68, Est GFR (MDRD) Af Amer 144, Est GFR (MDRD) Non-Af 119, BUN/Creatinine Ratio 13.4, Glucose 110 H, Calcium 8.4 L, Total Bilirubin 0.70, AST 19, ALT 37, Alkaline Phosphatase 86, Total Protein 6.1 L, Albumin 2.8 L, Globulin 3.3, Albumin/Globulin Ratio 0.8 L Micro: Microbiology 02/21/21 08:35 Interface Orders SARS-CoV-2 Antigen (Rapid) - Final 02/14/21 09:50 Swab (Method) Nasal Screen MRSA/MSSA - Final Radiography Diagnostic Testing: Radiology Impression Chest X-Ray 02/26/21 18:18 IMPRESSION: No acute abnormal cardiopulmonary finding. Electronically Signed: Miguelito Valencia MD at 22:45 EDT Tel , Service support , Hip/Pelvis X-Ray 02/26/21 18:26 IMPRESSION: Normal x-ray examination of the pelvis and bilateral hips. Electronically Signed: Miguelito Valencia MD at 4:34 EDT Tel , Service support , Lumbar Spine X-Ray 02/26/21 18:27 IMPRESSION: There is a new prosthetic device about the L4 right posterior elements. Electronically Signed: Miguelito Valencia MD at 22:51 EDT Tel , Service support , Procedure Criteria Elective Risks - COVID COVID Risk Discussion: Postop day #2. Patient is seen on rounds. He has been walking and been seen in the hallway doing so. His abdomen is much softer today. He has fact flatulence now that I could actually hear. We will advance his diet to full liquids. I changed his dressing remove the drain. Vision is dry and healing well. Progress is satisfactory. Hopefully he will be able to go home tomorrow.
--- NOTE | 2021-02-27 14:25 | PN.HOSP_ITS ---
Subjective Subjective Hospitalist team was consulted for evaluation of fever and chills and infection after the procedure. Patient had L5-S1 herniated disc which required posterior fusion, laminectomy internal fixation by Dr. Pringle. Patient has Pulido catheter with history of neurogenic bladder and incomplete emptying and retention. Denies cough, sputum production, burning micturition. No abdominal pain. Complain of severe back pain after surgery and painful rotation. Objective Data Objective Data Vital Signs: Vital Signs Temp Pulse Resp BP Pulse Ox 98.1 F 102 H 18 117/89 H 96 02/27/21 07:30 02/27/21 07:30 02/27/21 07:30 02/27/21 07:30 02/27/21 08:26 Oxygen Flow Rate (L/min) 6 Oxygen Delivery Method Room Air Weight: 196 lb 6 oz Body Mass Index (BMI) 27.3 Intake & Output: Intake and Output for Last 24 Hours 02/25/21 02/26/21 02/27/21 23:59 23:59 23:59 Intake Total 4050.5 / 4050.5 3644.34 / 3644.34 2054 / 2054 Output Total 1170 / 1170 3130 / 3130 3200 / 3200 Balance 2880.5 / 2880.5 514.34 / 514.34 -1145 / -1145 Lab / Micro Data Result Diagrams: 02/27/21 05:42 02/27/21 05:42 Labs: Laboratory Results - last 24 hr 02/26/21 18:00: COVID-19 (JENNIFER) Negative 02/26/21 19:09: WBC 15.0 H, RBC 4.31 L, Hgb 13.0, Hct 40.3, MCV 93.5, MCH 30.2, MCHC 32.3, RDW Std Deviation 45.1 H, RDW Coeff of Kayla 13.2, Plt Count 258, MPV 11.3, Immature Gran % (Auto) 0.300, Neut % (Auto) 79.7 H, Lymph % (Auto) 10.7 L, [place] % (Auto) 9.1, Eos % (Auto) 0.0, Baso % (Auto) 0.2, Absolute Neuts (auto) 11.9 H, Absolute Lymphs (auto) 1.61, Nucleated RBC % 0 02/26/21 19:09: Sodium 140, Potassium 3.7, Chloride 107, Carbon Dioxide 30.0, Anion Gap 3 L, BUN 13, Creatinine 0.94, Estim Creat Clear Calc 103.47, Est GFR (MDRD) Af Amer 111, Est GFR (MDRD) Non-Af 92, BUN/Creatinine Ratio 13.9, Glucose 111 H, Calcium 8.7, Total Bilirubin 0.60, AST 18, ALT 40, Alkaline Phosphatase 87, Total Protein 6.4, Albumin 3.3, Globulin 3.1, Albumin/Globulin Ratio 1.1 02/26/21 19:30: Urine Color Straw, Urine Clarity Clear, Urine pH 7.0, Ur Specific [place] 1.010, Urine Protein Negative, Urine Glucose (UA) Normal, Urine Ketones Negative, Urine Occult Blood 250 H, Urine Nitrite Negative, Urine Bilirubin Negative, Urine Urobilinogen Normal, Ur Leukocyte Esterase 25 H, Urine RBC 5-10 SEEN, Urine WBC 0-5 SEEN, Ur Squamous Epith Cells 0 SEEN, Urine B acteria 0 SEEN, Urine Mucus 0 SEEN 02/27/21 05:42: WBC 13.1 H, RBC 4.21 L, Hgb 12.6 L, Hct 39.7 L, MCV 94.3 H, MCH 29.9, MCHC 31.7 L, RDW Std Deviation 45.8 H, RDW Coeff of Kayla 13.2, Plt Count 219, MPV 10.8, Immature Gran % (Auto) 0.500, Neut % (Auto) 77.9 H, Lymph % (Auto) 10.2 L, [place] % (Auto) 11.2 H, Eos % (Auto) 0.0, Baso % (Auto) 0.2, Absolute Neuts (auto) 10.2 H, Absolute Lymphs (auto) 1.33, Nucleated RBC % 0 02/27/21 05:42: Sodium 139, Potassium 3.8, Chloride 106, Carbon Dioxide 28.0, A nion Gap 5, BUN 10, Creatinine 0.75, Estim Creat Clear Calc 129.68, Est GFR (MDRD) Af Amer 144, Est GFR (MDRD) Non-Af 119, BUN/Creatinine Ratio 13.4, Glucose 110 H, Calcium 8.4 L, Total Bilirubin 0.70, AST 19, ALT 37, Alkaline Phosphatase 86, Total Protein 6.1 L, Albumin 2.8 L, Globulin 3.3, Albumin/Globulin Ratio 0.8 L Micro: Microbiology 02/21/21 08:35 Interface Orders SARS-CoV-2 Antigen (Rapid) - Final 02/14/21 09:50 Swab (Method) Nasal Screen MRSA/MSSA - Final Radiography Diagnostic Testing: Radiology Impression Chest X-Ray 02/26/21 18:18 IMPRESSION: No acute abnormal cardiopulmonary finding. Electronically Signed: Miguelito Valencia MD at 22:45 EDT Tel , Service support , Hip/Pelvis X-Ray 02/26/21 18:26 IMPRESSION: Normal x-ray examination of the pelvis and bilateral hips. Electronically Signed: Miguelito Valencia MD at 4:34 EDT Tel , Service support , Lumbar Spine X-Ray 02/26/21 18:27 IMPRESSION: There is a new prosthetic device about the L4 right posterior elements. Electronically Signed: Miguelito Valencia MD at 22:51 EDT Tel , Service support , Physical Exam Narrative General: Alert, Oriented x3, Cooperative in mild distress due to back pain HEENT: Atraumatic, PERRLA, EOMI, Normocephalic Oral: No Gingival or Mucosal Lesions/ Ulcerations Neck: Supple, No JVD, Negative Carotid Bruits Lungs: Air entry diminished in bilateral lung bases. No crepitation/rhonchi Cardiovascular: Regular rate, Regular Rhythm, Normal S1, Normal S2, No murmurs Abdomen: Bowel Sounds Present, Soft, Non Tender, Non-Distended : Pulido catheter. Clear urine. Neurogenic bladder. No renal angle or suprapubic tenderness. Extremities: No edema, Capillary Refill Less than 3 Seconds Skin: No rashes, No breakdown Musculoskeletal/spine: Unable to turn to side. Tenderness palpated. Could not inspect the back because of pain Neurological: Cranial nerves II-XII grossly intact, DTR 2+/4 and Symmetrical, Neuro grossly intact Psych/Mental Status: Flat affect. Assessment & Plan Assessment/Plan (1) Fever: QUALIFIERS: Fever type: post-procedural Qualified Code(s): R50.82 - Postprocedural fever (2) Cauda equina syndrome with neurogenic bladder: (3) Herniated nucleus pulposus, L5-S1, left: PLAN: 1. Fever after the back surgery, L5-S1 herniated disc with severe degeneration requiring posterior elements fusion, laminectomy and internal fixation on 02/25: Urine looks bland with WBC 0-5 cells LE 25 and nitrite negative. Chest x-ray clear. ID consult reviewed and agree with Brianne and Zane. Blood cultures are pending. Patient has back pain. Further orthospine Dr. Pringle evaluation needed. 2. Chronic back pain, lumbar radiculopathy with radiation to right hip: Patient had T-spine x-rays which shows postsurgical changes. Hip and pelvic x-ray reported normal. 3. VT prophylaxis: Bilateral SCDs. Patient has KEITH hose. Pharmacological prophylaxis as per discretion of Dr. Pringle. Clinical Impression(s) from Imaging Studies Spine X-Ray 02/25/21 09:15 IMPRESSION: Intraoperative digital documentation image. Electronically Signed: Mirza Scherer MD at 9:53 EDT , Service support , Spine X-Ray 02/25/21 10:15 IMPRESSION: Status post discectomy, interbody fusion, and anterior fixation at L5/S1. Electronically Signed: Shyam Henry MD at 16:51 EDT Tel , Service support , Spine X-Ray 02/25/21 10:26 IMPRESSION: Status post fusion and fixation at L5/S1. Electronically Signed: Shyam Henry MD at 16:31 EDT Tel , Service support , Spine X-Ray 02/25/21 11:58 IMPRESSION: Status post recent discectomy, interbody fusion, anterior and posterior fixation at L5/S1. Electronically Signed: Shyam Henry MD at 17:06 EDT Tel , Service support , Chest X-Ray 02/26/21 18:18 IMPRESSION: No acute abnormal cardiopulmonary finding. Hip/Pelvis X-Ray 02/26/21 18:26 IMPRESSION: Normal x-ray examination of the pelvis and bilateral hips. Electronically Signed: Miguelito Valencia MD at 4:34 EDT Tel , Service support , Lumbar Spine X-Ray 02/26/21 18:27
[2021-02-27] MEDS: HYDROmorphone 0.5 MG/0.5 ML SYRINGE IV (14:45)
[2021-02-27] MEDS: Vancomycin IV 1,000 MG/200 ML BAG 200 MG IV (16:41)
[2021-02-27] MEDS: Tamsulosin HCl 0.4 MG Capsule PO (17:09)
[2021-02-27] MEDS: Acetaminophen 325 MG Tablet 650 MG PO (21:25)
[2021-02-28] VITALS (7 sets, daily range): BP systolic 130–139; BP diastolic 68–90; PULSE 98–118; RESP 16–18; TEMP 36.8–37.1; O2SAT 93–100
[2021-02-28] MEDS: Vancomycin IV 1,000 MG/200 ML BAG 200 MG IV ×2 (00:11→08:09)
[2021-02-28] MEDS: Lactated Ringers 1,000 ML 100 ML IV (00:12)
[2021-02-28] MEDS: Gabapentin 300 MG Capsule PO ×2 (06:10→13:35)
[2021-02-28] MEDS: oxyCODONE 5 MG Tablet 10 MG PO ×2 (06:10→10:54)
[2021-02-28] MEDS: diazePAM 5 MG Tablet PO (08:10)
[2021-02-28] MEDS: Famotidine 20 MG Tablet PO (10:24)
[2021-02-28] MEDS: Senna/Docusate Sodium 1 Tablet 2 TABLET PO (10:25)
--- NOTE | 2021-02-28 12:36 | DCINST_ITS ---
Discharge Instructions Follow Up Care Test Results: Test results from this visit will be discussed in further detail at your follow-up appointment, if applicable. Discharge Plan Admission Admit Date/Time: 02/25/21 05:33 Primary Reason for Your Visit: surgery Attending Provider: Que Pringle Primary Care Provider: Elmo Trimble Consulting Providers: Sergio Sutton ; Rea Monson ; Sahara Boateng ; Marcie Mark [employer] ; Koby Vazquez NP ; Elizabeth Steiner ; Ori Domingo Discharge Orders/Prescriptions Prescriptions: No Action multivitamin Tablet 1 tab PO DAILY RF: 0 ascorbate calcium (vitamin C) 500 mg tablet 500 mg PO DAILY RF: 0 gabapentin 300 mg capsule 300 mg PO TID RF: 0 hydrocodone-acetaminophen 7.5-325 mg tablet 1 tab PO Q6H PRN (Reason: pain) 10 Days Qty: 40 RF: 0 Referrals / Follow Up: Elmo Trimble MD [Primary Care Provider] - Disposition Disposition (needs filled in before D/C Order can be placed): Home, Self Care
--- NOTE | 2021-02-28 12:38 | DS.PCM_ITS ---
Providers Date of Admission: 02/25/21 Primary Care Physician: Dr. Elmo Trimble MD Consultations 02/26/21 19:04 Consult: Hospitalist Routine Consulting Provider: [facility] Reason for Consult: fever post op EMERGENT Consult: Yes MD Notified: Yes Date Notified: 02/26/21 Time Notified: 17:45 Method of Notification: Text Method of Consult:: In-Person 02/27/21 07:34 Consult: Infectious Disease Routine Consulting Provider: Ori Domingo Reason for Consult: fever after lumbar spine surgery. H/o cauda equina, neurogenic bladder EMERGENT Consult: No MD Notified: Yes Date Notified: 02/27/21 Time Notified: 07:34 Method of Notification: Verbal Reason For Visit: 360 LUMBAR FUSION L5-S1, LT LAMINECTOMY Diagnosis Discharge Diagnosis (1) Fever: Status: Acute Code(s): R50.9 - Fever, unspecified Qualifiers: Fever type: post-procedural Qualified Code(s): R50.82 - Postprocedural fever (2) Cauda equina syndrome with neurogenic bladder: Status: Acute Code(s): G83.4 - Cauda equina syndrome (3) Herniated nucleus pulposus, L5-S1, left: Status: Acute Code(s): M51.27 - Other intervertebral disc displacement, lumbosacral region Plan: This is discharge summary on patient Korey Carrillo. This patient was admitted on February 25, 2021 and is being discharged on February 28, 2021. The day of admission he underwent a 360 degree fusion at the L5-S1 level. Postoperatively he has done well. The dressing was changed yesterday and the incision is hea ling well. Has been ambulating the halls. At discharge he is neurologically intact. He was given post 360 protocol regarding his activities. This was told to the patient in the company of his . His pain medication is already been filled. He already has an appointment to see me on the . This is the end of discharge summary on Zeyad Carrillo. This is Dr. Pringle dictating. Medications at Discharge Home Medications ascorbate calcium (vitamin C) 500 mg tablet 500 mg PO DAILY 07/05/20 multivitamin 1 tab PO DAILY 07/05/20 gabapentin 300 mg capsule 300 mg PO TID cap 01/17/21 hydrocodone 7.5 mg-acetaminophen 325 mg tablet 1 tab PO Q6H PRN 10 Days #40 tab 02/27/21 Weight / BMI Weight Weight: 196 lb 6 oz Body Mass Index (BMI) 27.3 ABG / Lab / Microbiology Data Result Diagrams: 02/27/21 05:42 02/27/21 05:42 Microbiology: Microbiology 02/26/21 19:30 Urine, Catheterized Urine Culture - Preliminary Culture exhibits no growth. 02/21/21 08:35 Interface Orders SARS-CoV-2 Antigen (Rapid) - Final 02/14/21 09:50 Swab (Method) Nasal Screen MRSA/MSSA - Final Meaningful Use Info Meaningful Use Diagnoses (Choose all that apply): None applicable Discharge Plan Admission Admit Date/Time: 02/25/21 05:33 Primary Reason for Your Visit: surgery Attending Provider: Que Pringle Primary Care Provider: Elmo Trimble Consulting Providers: Sergio Sutton ; Rea Monson ; Sahara Boateng ; Marcie Mark ORTHODONTIC TECHNICIAN ; Koby Vazquez NP ; Elizabeth Steiner ; Ori Domingo Discharge Orders/Prescriptions Prescriptions: No Action multivitamin Tablet 1 tab PO DAILY RF: 0 ascorbate calcium (vitamin C) 500 mg tablet 500 mg PO DAILY RF: 0 gabapentin 300 mg capsule 300 mg PO TID RF: 0 hydrocodone-acetaminophen 7.5-325 mg tablet 1 tab PO Q6H PRN (Reason: pain) 10 Days Qty: 40 RF: 0 Referrals / Follow Up: Elmo Trimble MD [Primary Care Provider] - Disposition Disposition (needs filled in before D/C Order can be placed): Home, Self Care
[2021-02-28] MEDS: HYDROmorphone 0.5 MG/0.5 ML SYRINGE IV (13:09)
[2021-02-28] MEDS: Ondansetron 4 MG/2 ML Vial IV (13:09)
--- NOTE | 2021-02-28 13:31 | PCM.PN.ID ---
Physical Exam Narrative Feeling better, no fever, incisions doing well, mild cough. Const alert and no apparent distress General Appearance: cooperative Resp normal air movement and clear to auscultation bilaterally Cardio regular rate and regular rhythm GI normal to inspection, nondistended, normoactive bowel sounds Extremity no clubbing, cyanosis or edema Skin no rashes or lesions noted Skin Narrative: incisions with no redness or drainage ID ID: Route of nutrition/ use of supplements: [] Nutritional Intake: [] IV Site: [] Pulido Catheter: [] Assessment & Plan Assessment/Plan (1) Fever: QUALIFIERS: Fever type: post-procedural Qualified Code(s): R50.82 - Postprocedural fever PLAN: Post op fever, leukocytosis, tachycardia - improved this AM, no further fever, wbc better. UA relatively normal. Bcx neg so far. Covid pcr neg, but is unvaccinated; reviewed risks and benefits, encouraged him to get vaccine. CXR clear. Incision doing well at this point. Ok for home with one more day augmentin, wrote rx. Will follow as needed (2) Cauda equina syndrome with neurogenic bladder:
== END 2021-02-28 13:52 | disposition home or self-care (01) | DRG 30 ==
LOC: ACINP 05:45 → MS3 15:48
PROVIDERS: Anesthesiology; Family Medicine; Nurse Practitioner Family; Admitting Provider Orthopaedic Surgery; PCP Family Medicine; Referring Provider Orthopaedic Surgery; Visit Provider Orthopaedic Surgery
PROC: 0SG30A0 Fusion of Lumbosacral Joint with Interbody Fusion Device, Anterior Approach, Anterior Column, Open Approach (ICD-10-PCS; principal; 2021-02-25 07:00)
DX: G83.4 Cauda equina syndrome (principal); M51.27 Other intervertebral disc displacement, lumbosacral region; M51.37 Other intervertebral disc degeneration, lumbosacral region; R00.0 Tachycardia, unspecified; R50.82 Postprocedural fever; R10.9 Unspecified abdominal pain; M25.551 Pain in right hip; R06.82 Tachypnea, not elsewhere classified; G25.81 Restless legs syndrome; G89.29 Other chronic pain; M19.90 Unspecified osteoarthritis, unspecified site; Z79.899 Other long term (current) drug therapy; F17.220 Nicotine dependence, chewing tobacco, uncomplicated
CPT/HCPCS: 36415; 71046; 72020; 72100; 73521; 80048; 80053; 81001; 82962; 83735; 85025; 86703; 86706; 86708; 86803; 87040; 87081; 87086; 87426; 87635; 88304; 93005; 97116; 97162; 97530; C1713; C9803; J7030; J7050; J7120; U0005; A4216; J2405; U0003

== ENCOUNTER → 2021-06-06 11:05 | Outpatient (CLI) | payer OTHER, SELFPAY ==
--- NOTE | 2021-06-06 11:09 | CT_ITS ---
STUDY: CT ABDOMEN AND PELVIS WITH CONTRAST REASON FOR EXAM: Male, 45 years old. Abdominal pain. Recent surgery in the left groin. RADIATION DOSAGE (If Supplied By Facility): CTDIvol = ( 11.44 ) mGy, DLP = ( 967.01 ) mGycm TECHNIQUE: Transaxial images were obtained from the dome of the diaphragm to the symphysis pubis without oral contrast. IV 100mL Isovue-370 was administered. Sagittal and coronal images were reconstructed. Individualized dose optimization techniques were used for this CT. COMPARISON: None. FINDINGS: Mild degree of increased markings at the right lung base suggestive of basilar atelectasis. A calcified granuloma is seen in the right lower lobe. The visualized portions of the heart are within normal limits. Normal liver. Normal gallbladder and extrahepatic biliary system. Normal spleen. Normal pancreas. Normal bilateral adrenal glands. Normal right kidney. Normal left kidney. Normal visualized stomach. Normal small intestine. There are multiple colonic diverticula consistent with diverticulosis. The appendix is visualized and appears normal. Normal abdominal aorta. Normal inferior vena cava. There is borderline retroperitoneal lymphadenopathy with enlarged nodes no greater than 10mm in the short axis diameter. Normal urinary bladder. Postsurgical changes are seen in the subcutaneous tissues overlying the left groin. Normal abdominal wall. The patient is status post throwing a 360 degree fusion at the L5-S1 level. CT/Abdomen/Pelvis W IV Cont ONLY IMPRESSION: Postoperative changes seen in the soft tissues overlying the left groin. Electronically Signed: Cezar Alexis MD at 13:23 EST , Service support ,
== END ==
PROVIDERS: PCP Family Medicine; Referring Provider Surgery; Visit Provider Surgery
DX: R10.9 Unspecified abdominal pain (principal)
CPT/HCPCS: 74177; Q9967; A4216